=== PATIENT | male | born 1955 | race Caucasian/White ===

== ENCOUNTER 2021-08-28 06:34 | Outpatient (CLI) | payer BC ==
[~2021-08-28] VITALS: Ht 172.7 cm; Wt 72.4 kg
[2021-09-01] MEDS ORDERED: ASPI-999 PO (14:59)
[2021-09-01] MEDS ORDERED: TRAZ-227 PO (14:59)
[2021-09-01] MEDS ORDERED: CETI10TA17 PO (14:59)
[2021-09-01] MEDS ORDERED: CYCL10TA25 PO (14:59)
== END 2021-09-01 15:35 ==
LOC: PREOP 06:34
PROVIDERS: ATTEND Surgery
DX: Z01.818 Encounter for other preprocedural examination (principal)

== ENCOUNTER 2021-09-09 13:39 | Day surgery (SDC) | payer BC, MEDICARE ==
[~2021-09-09] VITALS: Ht 172.7 cm; Wt 72.4 kg
[~2021-09-09 13:39] MED LIST: ASPI-999 PO; CETI10TA17 PO; CYCL10TA25 PO; LACTATED RINGERS 1,000 ML IV STA; TRAZ-227 PO
[2021-09-09] MEDS ORDERED: LACTATED RINGERS 1,000 ML IV ONE (13:43)
[2021-09-09 13:55] VITALS: BP 131/82
[2021-09-09] MEDS ORDERED: PROPOFOL INJECTION 50 ML IV ONE ×2 (14:19→14:42)
--- NOTE | 2021-09-09 15:04 | Progress Note-Pre Operative ---
Pre-Operative Progress Note H&P Reviewed The H&P was reviewed, patient examined and no changes noted. Date Seen by Provider: Sep 09, 2021 Time Seen by Provider: 14:21 Date H&P Reviewed: Sep 09, 2021 Time H&P Reviewed: 14:21 Pre-Operative Diagnosis: Screening colonoscopy ARTUR HAYDEN DO Sep 09, 2021 15:04
[2021-09-09 15:05] VITALS: BP 69/48
--- NOTE | 2021-09-09 15:07 | Progress Note-Post Operative ---
Post-Operative Progess Note Surgeon (s)/Synthetic Staple Extruder (s) Surgeon ARTUR HAYDEN DO Synthetic Staple Extruder: na Pre-Operative Diagnosis Screening colonoscopy Post-Operative Diagnosis Colon polyps x6 Procedure & Operative Findings Date of Procedure 09/09/21 Procedure Performed/Findings Colonoscopy with hot biopsy polypectomy x2 and snare polypectomy x4 Anesthesia Type per MUTUEL CASHIER Estimated Blood Loss Estimated blood loss (mL): none Specimens/Packing Specimens Removed Transverse colon hot polypectomy x1 Hepatic flexure hot polypectomy x1 Cecal polyp snare x1 Ascending polyp snare x1 Transverse polyp snare x1 Sigmoid snare x1 ARTUR HAYDEN DO Sep 09, 2021 15:07
[2021-09-09 15:10] VITALS: BP 79/47
--- NOTE | 2021-09-09 15:13 | Discharge Inst-Simple/Standard ---
Discharge Inst-Standard Patient Instructions/Follow Up Plan of Care/Instructions/FU: 2 weeks Neal Activity as Tolerated: Yes Discharge Diet: Regular Diet ARTUR HAYDEN DO Sep 09, 2021 15:13
[2021-09-09 15:15] VITALS: BP 78/50
[2021-09-09 15:20] VITALS: BP 123/67
[2021-09-09 15:35] VITALS: BP 127/85
--- NOTE | 2021-09-09 20:01 | OPERATIVE REPORT ---
DATE OF SERVICE: 09/09/2021 PREOPERATIVE DIAGNOSIS: Screening colonoscopy. POSTOPERATIVE DIAGNOSIS: Colon polyps x6. SURGEON: Artur De Jesus DO ANESTHESIA: Per HEALTH PHYSICS TECHNICIAN. PROCEDURE: Colonoscopy with hot biopsy polypectomy x2 and snare polypectomy x4. ESTIMATED BLOOD LOSS: None. COMPLICATIONS: None. INDICATIONS: The patient is a 66-year-old male needing screening colonoscopy. He understands risks and benefits of procedure and wishes to proceed. Consent was signed in the chart. DESCRIPTION OF PROCEDURE: The patient was taken to the endoscopy suite, placed in left lateral recumbent position. Timeout was performed. Digital rectal exam was performed. No palpable polyps, masses or ulcerations. Scope was inserted in the rectum and advanced all the way to cecum with minimal difficulty. Prep was adequate with irrigation and suction. Scope was then slowly retracted back. GI Genius was used also during retraction. In the cecum, a larger polyp was present, which snare polypectomy was performed. This had a piecemeal to be able to be suctioned and obtained. Scope was then continuously retracted back, another polyp was present in the ascending colon, which a snare polypectomy was performed and obtained. Scope was then continuously retracted back where there is a polyp at the hepatic flexure, which hot biopsy polypectomy was performed. Scope was then continuously retracted back, another small polyp was present in transverse colon, which hot biopsy polypectomy was performed. Another larger polyp was present in the transverse colon, which snare polypectomy was performed. Scope was then continuously retracted back. No polyps, masses or ulcerations within the descending colon and sigmoid colon, another polyp was present was small, which snare polypectomy was performed. Scope was continuously retracted back into the rectum, where it was also retroflexed noting no other pathology. Scope was returned to its normal position, slowly withdrawn until completely removed. The patient tolerated the procedure well without any complications, taken to recovery room in stable condition. RECOMMENDATIONS: The patient will need repeat colonoscopy in one year due to the large polyp and number. Any issues before that be seen at that time. The patient will follow up on pathology in the office to discuss. CC: Dr. Guevara - requested, unable to deliver. Job ID: [id number] DocumentID: [id number] Dictated Date: 09/09/2021 15:16:15 Service Captain Date: 09/09/2021 20:01:12 Dictated By: ARTUR DE JESUS DO
--- NOTE | 2021-09-24 07:37 | Anesthesia-General Post-Op ---
MAC Significant Intra-Op Events Notes postop mac anesthesia addendum on 09-09-21 at 1515 Patient Condition Mental Status/LOC: Same as Preop Cardiovascular: Satisfactory Nausea/Vomiting: Absent Respiratory: Satisfactory Pain: Controlled Complications: Absent Post Op Complications Complications None Follow Up Care/Instructions Patient Instructions None needed. Anesthesiology Discharge Order Discharge Order Patient is doing well, no complaints, stable vital signs, no apparent adverse anesthesia problems. No complications reported per nursing. LUAN SAMPSON INSPECTOR SOLDERING Sep 24, 2021 07:37
== END 2021-09-09 15:46 | disposition home or self-care (01) ==
LOC: ENDO 13:39
PROVIDERS: ATTEND Surgery
DX: Z12.11 Encounter for screening for malignant neoplasm of colon (principal); D12.3 Benign neoplasm of transverse colon; D12.0 Benign neoplasm of cecum; D12.2 Benign neoplasm of ascending colon; D12.5 Benign neoplasm of sigmoid colon; Z79.82 Long term (current) use of aspirin
CPT/HCPCS: 88305